=== PATIENT | female | born 1990 | race Hispanic/Latino ===

== ENCOUNTER 2016-10-03 04:53 | Inpatient (IN) | payer OTHER ==
[~2016-10-03] VITALS: Ht 167.6 cm; Wt 89.4 kg
[2016-10-03] MEDS ORDERED: Lactated Ringer's 1,000 ML IV PRN ×2 (05:07→07:44)
[2016-10-03] MEDS ORDERED: Sodium Chloride LOK Flush 10 mL Syringe IVFLUSH PRN ×2 (05:10→07:45)
[2016-10-03] MEDS ORDERED: Hemorrhage Kit, Post Partum XX ONE ×3 (05:10→20:25)
[2016-10-03] MEDS ORDERED: Oxytocin 30 Units/500 mL LR 30 UNITS in IV Premix 1 EACH IV PRN ×3 (05:10→20:25)
[2016-10-03] MEDS ORDERED: Carboprost 250 mCg/mL Inj IM PRN ×3 (05:10→20:25)
[2016-10-03] MEDS ORDERED: Oxytocin 10 Unit/mL Inj IM PRN ×3 (05:10→20:25)
[2016-10-03] MEDS ORDERED: Methylergonovine 0.2 mg/mL Inj IM PRN ×3 (05:10→20:25)
[2016-10-03 06:07] LABS: Mean Corpuscular Hemoglobin 26.7 pg (27.0-35.0); Mean Corpuscular Volume 83.5 fL (81-100)
[2016-10-03] MEDS ORDERED: Oxytocin 30 Units/500 mL LR 30 UNITS in IV Premix 1 EACH IV ONE (06:45)
[2016-10-03] MEDS ORDERED: Lactated Ringer's 1,000 ML IV SCH (07:44)
[2016-10-03] MEDS ORDERED: fentaNYL-PF 50 mCg/mL 2 mL Inj IVPUSH PRN (07:45)
--- NOTE | 2016-10-03 08:10 | PCM.HPOB ---
Subjective Referring Provider: Admitting Physician: Ese Lopez MD Primary Care Physician: Carol Ann Rothman PA-C Attending Physician: Ese Lopez MD Chief Complaint Active labor with premature rupture of membranes. Pt has recent history of UTI which she has been taking Macrobid History of Present History of Present Illness Ms. Reid is a 26 year old female now G 2 P1 (last was complicated by pyelonephritis), who presented to labor and delivery early in the morning of Oct 03 2016 in active labor with premature rupture of her membranes at 38.2 weeks. She is not a GBS carrier. OB History: (2), Para (1) Past Medical History Hx Tobacco Use: No Past Family History Living Arrangement: with Family Genetic Screening/Counseling Genetic Screening/Counseling: Positive Review of Systems Constitutional: Y: Pain, Chills, Dizziness, Fever Eyes: Denies: Vision Changes Cardiovascular: Denies: Chest Pain Respiratory: Denies: Cough, Wheezing Gastrointestinal: Reports: Abdominal Pain, Denies: Heartburn, Nausea, Vomiting Neurological: Denies: Change in Speech, Confusion, Dizziness, Numbness, Weakness Medications Home medications Antacid, vitamin Allergy Coded Allergies: No Known Allergies (Unverified , 10/03/16) Exam Vital Signs BP 113/61 HR 68 Constitutional: Well-developed, Well-nourished HEENT: Atraumatic, PERRLA, Mucous Membr Moist/[place] Lungs: Clear to Auscultation, Normal Air Movement Heart: Exam Unremarkable, Regular Rate/Rhythm, No Murmurs/Rubs/Gallops Abdomen: Gravid Extremities: Pulses Palpable x4, No Edema Neurological/Psychiatric: Alert, Oriented X3, Cooperative, Mild Distress Neuro: Grossly Neurologically Intact Labs/Diagnostics Maternal Blood Type: O Hx Rho(D) Immune Globulin: No Group B Strep Results: Negative (No outPt data) Rubella: Immune Lab History: Negative for: Hx Gonorrhea, Hx HIV, Hx Syphilis OB Intrapartum Assessment/Plan Assessment Membranes have ruptured, Pitocin started. Pt in active labor with slow progression. MARQUITA BLACKBURN DO Oct 03, 2016 07:31
[2016-10-03] MEDS ORDERED: EPHEDrine Sulfate 50 mg/mL Inj IVPUSH PRN (13:30)
[2016-10-03] MEDS ORDERED: Lactated Ringer's 500 ML IV ONE (13:30)
[2016-10-03] MEDS ORDERED: Ondansetron 2 mg/mL 2 mL Inj IVPUSH PRN (13:30)
[2016-10-03] MEDS ORDERED: Atropine 1 mg/10 mL (Code) Syringe IVPUSH PRN (13:30)
[2016-10-03] MEDS ORDERED: fentaNYL 2 mCg/mL-Bupiv 0.125% 100 ML EPIDURAL SCH (13:30)
--- NOTE | 2016-10-03 13:43 | PCM.HPANE ---
Patient Data Surgeon Admitting Provider:Ese Lopez MD Attending Provider:Ese Lopez MD Primary Care Physician:Carol Ann Rothman PA-C Other Provider:Oumar Nichole Anesthesia Reason for Visit Active Labor ACTIVE LABOR Ht/WT & BMI Body Mass Index Allergies Coded Allergies: No Known Allergies (Unverified , 10/03/16) Diabetes History Hx Diabetes?: No MRSA MRSA: No Medications Hypertension Medication: No Home Meds Incl Beta Gregg: No History History of ENT Problems?: No HEENT History: Denies:: Abnormal Airway Cataracts Difficult Intubation Dysphagia Glaucoma Hearing Problem Sinus Problem TMJ Hx of Heart Problems?: No Hx of Respiratory Problem?: No Hx Neurologic Problems?: No Hx of GI Problems?: No Hx of Problems?: No HX of Peritoneal Dialysis: No Female Hx: Positive for:: Currently Hx Musculoskeletal Problems?: No Hx of Psycho/Social Problems?: No Hx Surgeries?: No Hx Any Other Health Problems?: No Smoking Status: Never Smoker Stop/Bang KALEY Risk Assessment: Low Risk, <3 Yes Risk Assessment Category Category 1A: Patient has history of documented sleep apnea, and HAS NOT received any narcotic, sedative or anesthesia administration during this stay. Category 1B: Patient has history of documented sleep apnea, and HAS received any narcotic , sedative or anesthesia administration during this stay Category 2: Patient has SUSPECTED Obstructive Sleep Apnea, and HAS received any narcotic , sedative or anesthesia administration during this stay. Category 3: Patient has SUSPECTED Obstructive Sleep Apnea and HAS NOT received narcotic, sedative or anesthesia administration during this stay. Category 4: Outpatient in Procedural Areas with known sleep apnea or who screen positive for High Risk via the STOP/BANG questionnaire. Exam Exam General Appearance: Alert, Oriented X3, Cooperative, No Acute Distress HEENT/AIRWAY: MP 2 Lungs: Clear to Auscultation, Normal Air Movement Heart: Exam Unremarkable, Regular Rate/Rhythm, No Murmurs/Rubs/Gallops Meds/Labs/Diagnostics Admission Meds Current Medications Oxytocin/Lactated Ringer's 30 units/ Premix 500 ml @ 0 mls/hr ONCE ONCE IV Last administered on 10/03/16t 07:36; Start 10/03/16 at 06:45; Stop 10/03/16 at 06:47; Status DC Lactated Ringer's (Lr) 1,000 ml @ 125 mls/hr Q8H IV Last administered on t 12:55; Start 10/03/16 at 07:44 Labs Test 10/03/16 06:00 White Blood Count 11.1th/mm3 (3.8-10.1) Red Blood Count 3.93mil/mm3 (3.90-5.20) Hemoglobin 10.5g/dL (12.0-15.6) Hematocrit 32.8% (35.0-46.0) Mean Corpuscular Volume 83.5fL (81-100) Mean Corpuscular Hemoglobin 26.7pg (27.0-35.0) Mean Corpuscular Hemoglobin Concent 32.0% (32.0-37.0) Red Cell Distribution Width 13.8% (12.3-15.4) Platelet Count 235bil/L (150-400) Plan Impression Patient chart reviewed, patient interviewed and anesthestic plan with risks, benefits, and alternatives discussed, and informed consent obtained. ASA Physical Status: ASA2 Mod Systemic Disease Anesthetic Plan: Epidural Bene/Risks/Altern/Consents: Yes HP Complete Prior to Induction: Yes Paul Rojas MD Oct 03, 2016 13:33
[2016-10-03] MEDS: Lactated Ringer's 1,000 ML IV SCH ×3 (14:19→21:30)
[2016-10-03] MEDS: Sodium Chloride LOK Flush 10 mL Syringe IVFLUSH SCH (16:30)
--- NOTE | 2016-10-03 20:11 | PCM.ANEP2 ---
Post Anesthesia Evaluation ASA/CMS Post Anesthesia VS in Patient's Normal Range?: Yes Resp Stable; Airway Patent?: Yes CV Function & Hydration Stable: Yes Mental Status Recovered?: Yes Pain control Satisfactory?: Yes N/V Control Satisfactory?: Yes Paul Rojas MD Oct 03, 2016 20:11
[2016-10-03] MEDS ORDERED: LANOlin HPA 7 Gm Ointment TOPICAL PRN (20:25)
[2016-10-03] MEDS ORDERED: Witch Hazel-Glycerin Pads TOPICAL PRN (20:25)
--- NOTE | 2016-10-03 22:24 | OP ---
[address] [address] OPERATIVE REPORT PATIENT: TYLER MAN : 1990 MR#: [id number] ADMIT: 10/03/2016 JOB ID: [id number] DATE OF SURGERY: 10/03/2016 SURGEON: Jigna Kim MD PREOPERATIVE DIAGNOSIS(ES): POSTOPERATIVE DIAGNOSIS(ES): A 26-year-old female. She is 2, para 2 now. She presented to [facility] this morning where leaking of fluid was confirmed after rupture of membranes. She had only occasional contractions at that time and her tracing was category one. The patient was started on induction with Pitocin. She got epidural for pain in labor and her pain was well controlled. The labor progressed normally and she during her whole progress of induction her heart tracing was reassuring. She was noted to be fully dilated and had good effort to push. During digital examination was noticed to be in LOP position with trying for manual rotation of the head. It failed but patient had a good effort to push and there was descent of the station. This infant was delivered at an LOP position and shoulder/chest delivered without difficulty. The was placed on mother's chest. The cord clamped and cut after position was secured. Then the regular cord blood collected. Then, the placenta delivered spontaneously completely and examined and had a three-vessel cord. After delivery of the placenta, uterus well contracted. The perineum examined with minimal laceration with the vaginal membrane. There is no active bleeding. No stitches need to be placed. The EBL during the delivery was about 100 cc. The scores of the infant were 9 and 9. The weight was not available at dictation.
[2016-10-04] MEDS: Sodium Chloride LOK Flush 10 mL Syringe IVFLUSH SCH ×3 (00:30→16:30)
[2016-10-04] MEDS: Lactated Ringer's 1,000 ML IV SCH ×5 (04:24→20:24)
[2016-10-04] MEDS ORDERED: HYDROcodone-APAP 5-325 mg Tablet PO PRN (07:10)
[2016-10-04 07:13] LABS: Mean Corpuscular Hemoglobin 26.6 pg (27.0-35.0); Mean Corpuscular Volume 84.2 fL (81-100)
--- NOTE | 2016-10-04 07:17 | PCM.PNOBPP ---
Subjective Date of Service Oct 04, 2016 Post : Spontaneous Vaginal Delivery Subjective at ~1930 on 10/03/16 after presentation to [facility] secondary to spontaneous rupture of membranes. Pt suffered minimal laceration to the vaginal membrane with no stitch requirement. Minimal EBL and had good scores (9 &9). Pt slept through the night with lower abdominal pain, localized to pubic symphysis. She is able to ambulate in room, reports no BM, good flatus and passing urine. Denies fever/chills. CP, N/V. Lochia: Normal Pain Management: PO pain meds Gastrointestinal: No N/V, Passing Flatus Postop Activity: Ambulating in Room Only Group B Strep Results: Negative (No outPt data) Rubella: Immune Blood Type: O Labs Laboratory Tests 10/04/16 06:50: Exam Vital Signs Vital Signs: VS reviewed, stable Exam Abdomen: Abdomen soft, Abdomen appropriately tender Extremities: Normal pulses, No tenderness/swelling Lungs: Clear to Auscultation Heart: Exam Unremarkable, Regular Rate/Rhythm General: Alert, Oriented X3, Cooperative, No Acute Distress OB Post Assessment/Plan Assessment 26 year old delivered full term infant without complication. Mother doing well. Problems: (1) Vaginal delivery Plan: Pain control with norco, encourage ambulation. Continue to monitor. Status: Acute ICD Code: O80 Pain Evaluation: Adequate Pain Control Post plan: Continue routine post care, Discharge home tomorrow Attending Statement I saw patient and agree with aboove plan MARQUITA BLACKBURN DO Oct 04, 2016 07:17 Jigna Kim MD Oct 28, 2016 12:44
[2016-10-05] MEDS ORDERED: FERR-83 PO (08:14)
[2016-10-05] MEDS ORDERED: IBUP-1827 PO (08:14)
[2016-10-05] MEDS ORDERED: DOCU-41 PO (08:14)
[2016-10-05] MEDS ORDERED: ASCO125T PO (08:17)
--- NOTE | 2016-10-05 08:41 | PCM.PNOBPP ---
Subjective Date of Service Oct 05, 2016 Post : Spontaneous Vaginal Delivery Subjective at ~1930 on 10/03/16 after presentation to [facility] secondary to spontaneous rupture of membranes. Pt suffered minimal laceration to the vaginal membrane with no stitch requirement. Minimal EBL and had good scores (9 &9). Pt slept through the night with lower abdominal pain improved from yesterday, still endorses uterine cramping though states that blood loss has improved greatly now vaginal bleeding is only very slight. She is able to ambulate in room, still reports no BM, good flatus and passing urine. Denies fever/chills. CP, N/V. Lochia: Normal Pain Management: PO pain meds Gastrointestinal: No N/V, Passing Flatus Postop Activity: Ambulating in Room Only Group B Strep Results: Negative (No outPt data) Rubella: Immune Blood Type: O RH Type: Positive Labs Laboratory Tests 10/04/16 06:50: White Blood Count 11.5, Red Blood Count 3.79, Hemoglobin 10.1, Hematocrit 31.9, Mean Corpuscular Volume 84.2, Mean Corpuscular Hemoglobin 26.6, Mean Corpuscular Hemoglobin Concent 31.7, Red Cell Distribution Width 14.1, Platelet Count 225 Exam Exam Abdomen: Abdomen soft, Abdomen non-tender : Voiding without difficulty Extremities: No tenderness/swelling Lungs: Clear to Auscultation, Normal Air Movement Heart: Exam Unremarkable, Regular Rate/Rhythm General: Alert, Cooperative OB Post Assessment/Plan Problems: (1) Vaginal delivery Plan: Discharge to home today. Status: Acute ICD Code: O80 Pain Evaluation: Adequate Pain Control Post plan: Continue routine post care, Anticipate discharge home today Attending Statement The patient was seen and examined together with Dr. Palacios on 10/05/2016 and I agree with the history, exam and plan as outlined in the note above. / MD BERE Rivera GILES Jack DO Oct 05, 2016 08:41 Richy Minor MD Nov 14, 2016 16:17
--- NOTE | 2016-10-05 08:50 | PCM.DC.OB ---
Obstetrical Discharge Summary Date of Service Oct 05, 2016 Date of hospital admission Oct 03, 2016 at 05:10 Date of Discharge: Oct 05, 2016 Providers Admitting Physician: Ese Lopez MD Primary Care Physician: Carol Ann Rothman PA-C Attending Physician: Ese Lopez MD Problems: (1) Vaginal delivery Plan: Mother and Child doing well. Discharge to home today Status: Acute ICD Code: O80 Brief History and Physical: Ms. Reid is a 26 year old female now G 2 P1 (last was complicated by pyelonephritis), who presented to labor and delivery early in the morning of Oct 03 2016 in active labor with premature rupture of her membranes at 38.2 weeks. She is not a GBS carrier. Hospital Course: Pt had without complication. 24 monitoring post delivery. Lab work showed mild anemia, no other complications. Pt remained stable throughout stay. Ascorbic Acid (Vitamin C) 125 Mg Tab.chew 125 MG PO DAILY Prescribed by: MARQUITA BLACKBURN DO Docusate Sodium (Colace) 100 Mg Capsule 100 MG PO DAILY Prescribed by: MARQUITA BLACKBURN DO Ferrous Sulfate (Ferrous Sulfate) 325 Mg Tablet 325 MG PO DAILY Prescribed by: MARQUITA BLACKBURN DO Ibuprofen (Ibuprofen) 600 Mg Tablet 600 MG PO Q6H PRN PRN For Mild Pain Prescribed by: MARQUITA BLACKBURN DO Disposition Discharge to home in stable condition. Discharge Diet: No restrictions Discharge Activity-General: Pelvic Rest for 6 weeks, Try not to overdue, Be up and about, Balance rest and activity, Activity as pain allows, Activity as energy allows, No lifting >15 pounds for 2 weeks Patient instructions Be sure to follow up in 6 weeks at women's health. 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 Pelvic rest for 6 weeks (nothing in the vagina including intercourse, tampons) If you have a fever greater than 100.4 please call Women's Health. If you have a lot of bleeding suddenly, especially if you have symptoms of dizziness & weakness with it, get emergency help. If you start experiencing extreme depression, especially if you feel that you are a danger to yourself or your family, seek emergency help. Please continue to take you iron and vitamin C supplement. You may take Tylenol and Ibuprofen for pain. Please alternate between these two medications and do not exceed the maximum doses in a 24 hour period. Do not take more than 3,000 mg in one day of acetaminophen (Tylenol) or 3200mg of ibuprofen in a 24 hour period. Please take your docusate, if you still do not have a bowel movement in the next few days please follow up in the women's clinic or with your PCP. You have been through a lot -- Be sure to take care of yourself. Attending Statement: The patient was seen and examined together with Dr. Delaney on 10/05/2016 and I agree with the history, exam and plan as outlined in the note above. / MD BERE Rivera GILES A DO Oct 05, 2016 08:50 Richy Minor MD Nov 14, 2016 16:19
--- NOTE | 2016-10-05 08:57 | PCM.DIOB ---
Obstetrical Disch Instruction Dates of Hospitalization Date of Hospital Admission Oct 03, 2016 at 05:10 Providers Admitting Physician: Ese Lopez MD Primary Care Physician: Carol Ann Rothman PA-C Attending Physician: Ese Lopez MD Discharge Diagnosis Problems: (1) Vaginal delivery Status: Acute ICD Code: O80 Diet Discharge Diet: No restrictions Activity Discharge Activity-General: Pelvic Rest for 6 weeks, Try not to overdue, Be up and about, Balance rest and activity, Activity as pain allows, Activity as energy allows, No lifting >15 pounds for 2 weeks Dressing and Incisional Care Hygiene: May shower, NO bathtub, hot tub or whirlpool, Perineal care Additional Instructions Discharge Instructions Be sure to follow up in 6 weeks at women's health. 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 Pelvic rest for 6 weeks (nothing in the vagina including intercourse, tampons) If you have a fever greater than 100.4 please call Women's Health. If you have a lot of bleeding suddenly, especially if you have symptoms of dizziness & weakness with it, get emergency help. If you start experiencing extreme depression, especially if you feel that you are a danger to yourself or your family, seek emergency help. Please continue to take you iron and vitamin C supplement. You may take Tylenol and Ibuprofen for pain. Please alternate between these two medications and do not exceed the maximum doses in a 24 hour period. Do not take more than 3,000 mg in one day of acetaminophen (Tylenol) or 3200mg of ibuprofen in a 24 hour period. Please take your docusate, if you still do not have a bowel movement in the next few days please follow up in the women's clinic or with your PCP. You have been through a lot -- Be sure to take care of yourself. Follow Up Plan Follow-up appointment: Weeks (6) Call your provider for: Fever or Chills, Shortness of breath, Heavy vaginal bleeding, Heavy bleeding, Epigastric pain, Excessive constipation, Vaginal discomfort, Red painful breasts MARQUITA BLACKBURN DO Oct 05, 2016 08:57
[2016-10-05 13:59] VITALS: BP 110/65; PULSE 62; RESP 24
== END 2016-10-05 14:33 | disposition home or self-care (01) | DRG 560 ==
LOC: FBCO 04:53 → FBC 05:10
PROVIDERS: ADMIT Obstetrics & Gynecology; ATTEND Obstetrics & Gynecology
PROC: 10E0XZZ Delivery of Products of Conception, External Approach (ICD-10-PCS; principal; 2016-10-03)
PROC: 3E033VJ Introduction of Other Hormone into Peripheral Vein, Percutaneous Approach (ICD-10-PCS; 2016-10-03)
DX: O80 Encounter for full-term uncomplicated delivery (principal); Z37.0 Single live birth; Z3A.38 38 weeks gestation of pregnancy